=== PATIENT | female | born 1950 | race Caucasian/White ===

== ENCOUNTER 2022-06-19 08:01 | Outpatient (CLI) | payer MEDICARE ==
[2022-06-19] MEDS ORDERED: Iopamidol 370 76% 100 ML VIAL ONE (09:00)
== END 2022-06-19 08:02 | disposition home or self-care (01) ==
LOC: CT 08:01
PROVIDERS: ATTEND Internal Medicine Medical Oncology
DX: C7A.00 Malignant carcinoid tumor of unspecified site (principal); E34.0 Carcinoid syndrome; I31.3 Pericardial effusion (noninflammatory); K76.89 Other specified diseases of liver
CPT/HCPCS: 71260; 74160; 82565